=== PATIENT | male | born 1990 | race African-American/Black ===

== ENCOUNTER 2022-01-19 16:40 | Emergency (ER) | payer MEDICAID, SELFPAY ==
[2022-01-19 16:53] VITALS: BP 139/94; PULSE 93; RESP 20; TEMP 36.7; O2SAT 95; BMI 30.8
[2022-01-19 17:08] LABS: MANUAL DIFF FLAG NO
[2022-01-19 17:11] LABS: Basophils Percent Auto 0.5 % (0-2); Eosinophils Absolute Auto 0.2 X10*3/uL (0.0-0.4); Eosinophils Percent Auto 2.5 % (0-4); Hematocrit 39.2 % (42.0-52.0); Hemoglobin 12.9 g/dl (14.0-18.0); Imm Gran Abs Auto 0.02 X10*3/uL (0.00-0.03); Imm Gran Pct Auto 0.3 % (0.0-0.4); Lymphocytes Absolute Auto 2.5 X10*3/uL (1.2-4.9); Lymphocytes Percent Auto 33.6 % (20-40); Mean Corpuscular HGB Conc 32.9 g/dl (31.0-36.0); Mean Corpuscular Hemoglobin 30.1 pg (27.0-33.0); Mean Corpuscular Volume 91.6 fL (80.0-98.0); Mean Platelet Volume 10.4 fL (9.4-12.4); Monocytes Absolute Auto 0.6 X10*3/uL (0.1-1.2); Monocytes Percent Auto 7.5 % (2-11); Neutrophils Absolute Auto 4.1 x10*3/uL (2.0-8.3); Neutrophils Percent Auto 55.6 % (45-73); Platelet Count 303 X10*3/uL (160-400); Red Blood Count 4.28 X10*6/uL (4.60-5.80); Red Cell Distribution Width 12.9 % (11.0-16.0); White Blood Count 7.3 X10*3/uL (4.8-10.8)
[2022-01-19 17:23] LABS: Anion Gap 16 (12-20); Blood Urea Nitrogen 10 mg/dL (9-16); Calcium 9.5 mg/dL (8.4-10.2); Carbon Dioxide 26 mmol/L (22-29); Chloride 103 mmol/L (96-108); Estimated Glomerular Filt Rate > 60; Glucose Random 115 mg/dL (60-115); Potassium 4.3 mmol/L (3.3-5.1); Sodium 141 mmol/L (135-145)
--- NOTE | 2022-01-19 22:13 | ED_ITS ---
HPI - General Adult General Chief complaint: General Medical Stated complaint: hemorrhoid's Time Seen by Provider: 01/19/22 22:01 Source: patient Mode of arrival: ambulatory Limitations: no limitations History of Present Illness HPI narrative: 31-year-old male presents with pain and pressure at the anus, and a feeling that there is ?something there?. He did note some bright red blood on his stools and toilet paper. Does not report constipation, does not have a family history of colon cancer. He thinks that these could be hemorrhoids, but has never had them in the past. He states the feeling is uncomfortable, itchy, feels pressure, and that is having a difficult time sitting. Onset (ago): day(s) (2) Location: buttocks (Anus) Radiation: non-radiation Severity: moderate Severity scale (1-10): 7 Quality: burning, aching and constant Pain Consistency: constant Relieving factors: none Exacerbating factors: movement and other (Bowel movement) Associated symptoms: denies other symptoms Treatments prior to arrival: none Related Data Allergies Allergy/AdvReac Type Severity Reaction Status Date / Time No Known Allergies Allergy Verified 01/19/22 22:11 Review of Systems Review of Systems: Constitutional: No Fever, No Chills ENT/Mouth: No Ear Pain, No Hoarseness, No sore throat Eyes: No Eye Pain, No Swelling, No Redness, No Foreign Body Cardiovascular: No Chest Pain, No SOB Respiratory: No Cough, No Dyspnea Gastrointestinal: Positive rectal pain, positive bright red blood per rectum, No Nausea, No Vomiting, No Diarrhea, No abdominal Pain Genitourinary: No Dysuria, No Hematuria Musculoskeletal: No joint pain, No Myalgias, No Joint Swelling Skin: No Skin lacerations, No rash Neuro: No Weakness, No Numbness, No Paresthesias, No Loss of Consciousness, No Dizziness, No Headache Psych: No Anxiety/Panic, No Depression Heme/Lymph: no easy bruising, no Lymphadenopathy Endocrine: No Polyuria, No Polydipsia Yes all other systems are reviewed and are negative PMFSH Past Medical History Attestation statement: The following information was validated with the patient. Source: old records reviewed Social History Social History Smoked in Last 30 Days: No Use of substances other than those prescribed or required for medical reasons: No Advance Directives: No Advance Directives Information Provided: No Physical Exam ED Vital Signs: Vital Signs - 24 hr 01/19/22 16:53 Temperature 98.1 F Pulse Rate 93 Respiratory Rate 20 Blood Pressure 139/94 H Pulse Oximetry 95 Oxygen Delivery Method Room Air BMI result Body Mass Index 30.8 Appearance: Alert. Oriented X3. No acute distress. Eyes: Pupils equal, round and reactive to light. ENT: Pharynx normal. Neck: Normal inspection. Neck supple. CVS: Normal heart rate and rhythm. Pulses normal. Respiratory: No respiratory distress. Breath sounds normal. Abdomen: Soft and nontender. Genitourinary: External hemorrhoids, internal hemorrhoids palpable. No anal fissure. Normal rectal tone. Skin: Skin warm and dry. Normal skin color. Normal skin turgor. Extremities: No lower extremity edema. Gait well-balanced well coordinated. Neuro: No motor deficit. No sensory deficit. Cranial nerves 2-12 intact. Course Course Course Narrative: 31-year-old male presents for evaluation of hemorrhoids. Had some bright red blood per rectum and several days of rectal pressure and pain. Patient has not had history of hemorrhoids in the past, and denies family history of colon cancer. patient does not report recent constipation. Will order dibucaine and hydrocortisone ointment. Patient is hemodynamically stable. Lab values are within normal limits. Will have patient follow-up with Gastroenterology for evaluation and also to rule out possibility of colon and rectal cancer. I did discuss this in detail with the patient, he does understand the importance of Gastroenterology evaluation. Patient verbalized understanding of and agrees to plan of care discharge home. Verbalized understanding of signs and symptoms indicating need for emergent intervention. Medical Decision Making Differential Diagnosis Differential Diagnosis: Hemorrhoids, anal fissure, rectal cancer, colon cancer, constipation Medical Records Medical records reviewed: Yes I reviewed the patient's medical records. Lab Data Lab results reviewed: Yes I reviewed the patient's lab results. Result diagrams: 01/19/22 17:02 01/19/22 17:02 Labs: Lab Results 01/19/22 01/19/22 Range/Units 17:02 17:02 WBC 7.3 (4.8-10.8) X10*3/uL RBC 4.28 L (4.60-5.80) X10*6/uL Hgb 12.9 L (14.0-18.0) g/dl Hct 39.2 L (42.0-52.0) % MCV 91.6 (80.0-98.0) fL MCH 30.1 (27.0-33.0) pg MCHC 32.9 (31.0-36.0) g/dl RDW 12.9 (11.0-16.0) % Plt Count 303 (160-400) X10*3/uL MPV 10.4 (9.4-12.4) fL Immature Gran % (Auto) 0.3 (0.0-0.4) % Neut % (Auto) 55.6 (45-73) % Lymph % (Auto) 33.6 (20-40) % [place] % (Auto) 7.5 (2-11) % Eos % (Auto) 2.5 (0-4) % Baso % (Auto) 0.5 (0-2) % Lymph # (Auto) 2.5 (1.2-4.9) X10*3/uL [place] # (Auto) 0.6 (0.1-1.2) X10*3/uL Eos # (Auto) 0.2 (0.0-0.4) X10*3/uL Baso # (Auto) 0.0 (0.0-0.2) X10*3/uL Abs Immat Gran (auto) 0.02 (0.00-0.03) X10*3/uL Absolute Neuts (auto) 4.1 (2.0-8.3) x10*3/uL Absolute Nucleated RBC 0.000 (0.0-0.012) X10*3/uL Nucleated RBC % (auto) 0.0 (0.0-0.2) /100WBC Sodium 141 (135-145) mmol/L Potassium 4.3 (3.3-5.1) mmol/L Chloride 103 (96-108) mmol/L Carbon Dioxide 26 (22-29) mmol/L Anion Gap 16 (12-20) BUN 10 (9-16) mg/dL Creatinine 0.93 (0.5-1.4) mg/dL Estim Creat Clear Calc 136.0 Estimated GFR > 60 Random Glucose 115 (60-115) mg/dL Calcium 9.5 (8.4-10.2) mg/dL Discharge Plan Discharge Clinical Impression: Hemorrhoids Patient Disposition: Home, Self-Care Instructions: Hemorrhoids (ED), Sitz Bath (DC) Additional Instructions: You were evaluated for rectal and anal pain. Physical exam is positive for hemorrhoids. You must follow-up with Gastroenterology for a colonoscopy to rule out colon and rectal cancer. Use dibucaine twice daily to the anus. Prior to rectal use, clean the affected area with mild soap and warm water and rinse thoroughly. Pat or dab the medication on to your affected area. Do not put this product into your rectum. Use hydrocortisone cream twice a day. Follow the instructions for dibucaine. Take MiraLax daily to soften stools. Again, you must follow-up with Gastroenterology. I referred you to Dr. Kincaid. Please call and request an appointment for evaluation. Thank you for choosing this emergency department for evaluation. Please follow-up with primary care physician as needed. Return to the emergency department for any new, concerning, or worsening symptoms. Referrals: Aristides Kincaid MD [Physician] - 3 days (Rectal pain with bleeding, hemorrhoids, evaluation for colon CA verses rectal CA) Stand Alone Forms: Work/School Release Interventions: ED Discharge Assessment Last Done: 01/19/22 23:00 Discharge Date/Time: 01/19/22 23:01
[2022-01-19] MEDS: Hydrocortisone 2.5 % Rectal Cr 30 GM TUBE 1 APPL PR (22:56)
--- NOTE | 2022-01-19 23:00 | PC.NURSE ---
Discharge instructions reviewed with pt. Rectal cream application instructions provided to pt. Pt verbalizes understanding.
== END 2022-01-19 23:01 | disposition home or self-care (01) ==
PROVIDERS: Emergency Provider Student in an Organized Health Care Education/Training Program
DX: K64.9 Unspecified hemorrhoids (principal); Z79.899 Other long term (current) drug therapy
CPT/HCPCS: 36415; 80048; 85025; 99283; 99284

== ENCOUNTER → 2022-01-30 15:27 | Outpatient (BNVA) | payer MEDICAID, SELFPAY | PROVIDERS: Visit Provider Internal Medicine | DX: K62.5 Hemorrhage of anus and rectum (principal); K62.89 Other specified diseases of anus and rectum; K64.8 Other hemorrhoids; D64.9 Anemia, unspecified | CPT/HCPCS: 99202 ==

== ENCOUNTER 2022-09-16 18:43 | Emergency (ER) | payer MEDICAID, SELFPAY ==
[2022-09-16 18:49] VITALS: BP 150/105; PULSE 99; RESP 18; TEMP 36.6; O2SAT 100; BMI 32.5
--- NOTE | 2022-09-16 19:00 | PC.NURSE ---
Adjusted Acuity based on lack of trauma, neuro deficits or other concerning findings in triage.
--- NOTE | 2022-09-16 19:01 | ED.GENADULT ---
HPI - General Adult General Chief complaint: Ear Problems Stated complaint: Right ear bleeding Time Seen by Provider: 09/16/22 22:30 Source: patient, RN notes reviewed and old records reviewed Mode of arrival: ambulatory Limitations: no limitations History of Present Illness HPI narrative: 32-year-old male presents for evaluation for bleeding from the ear. ? Patient reports that he has felt like his right ear has been blocked for a few months. He states that he felt like he had water in the ear 2 days ago. He stuck a Q-tip in and noticed that there was blood on the Q-tip He reports decreased hearing since that The patient was seen at [facility] yesterday and was given oral antibiotics He reports that he was still had some mild bleeding earlier today Related Data Previous Rx's Medication Instructions Recorded Rell denis #1 ea 01/30/22 Allergies Allergy/AdvReac Type Severity Reaction Status Date / Time No Known Allergies Allergy Verified 01/30/22 15:56 Review of Systems ENT: Reports ear discharge and Reports otalgia [facility] Family History Family History Maternal Grandfather Colon cancer Maternal Uncle Colon cancer Social History Social History Alcohol intake: former Smoked in Last 30 Days: No Use of substances other than those prescribed or required for medical reasons: No Advance Directives: No Advance Directives Information Provided: No Physical Exam ED Vital Signs: Vital Signs - 24 hr 09/16/22 18:49 09/16/22 22:58 Temperature 97.9 F 97.6 F Pulse Rate 99 86 Respiratory Rate 18 16 Blood Pressure 150/105 H 140/84 H Pulse Oximetry 100 97 Oxygen Delivery Method Room Air Room Air BMI result Body Mass Index 32.5 HENMT Other: Right tympanic membrane ruptured. There is a piece of the tympanic membrane that is visible and intact from the 9 to 7 o'clock position. There is no active bleeding but there is dry blood within the right ear canal. No mastoid tenderness. No pre or postauricular edema. Left TM pearly white without erythema or effusion or perforation Course Course Course Narrative: RME: 32 yold male presents to the ED for Right ear bleeding since yesterday. patient denies any trauma to the head, ear, or neck. patient admits to using qtip. Patient on oral antibiotics Medical Decision Making Medical Decision Making MDM Narrative: Clinically the patient has a ruptured right tympanic membrane. He is already on oral antibiotics are prescribed 2 days ago. No additional workup is indicated. There is no active bleeding. The patient will follow up with his primary doctor to get a referral to ENT Differential Diagnosis Otitis media Otitis externa Ruptured tympanic membrane Foreign body in ear Discharge Plan Discharge Clinical Impression: Eardrum rupture, right Patient Disposition: Home, Self-Care Instructions: Ruptured Eardrum (ED) Additional Instructions: You have a ruptured right tympanic membrane. Do not take anything in your ear Try not to even get water in your ear Continue taking the antibiotics as prescribed You need to follow-up with your primary doctor You should see an ENT specialist Unfortunately, we do not have any rotary shear worker helper that we can refer you to at this hospital You may call on your all or ask your doctor for a referral Prescriptions: No Action (DME) Rell denis [facility] See Rx Instructions .Route Qty: 1 0RF Rx Instructions: As directed Stand Alone Forms: Work/School Release Interventions: ED Discharge Assessment Last Done: 09/16/22 23:01 Discharge Date/Time: 09/16/22 23:01
[2022-09-16 22:58] VITALS: BP 140/84; PULSE 86; RESP 16; TEMP 36.4; O2SAT 97
== END 2022-09-16 23:01 | disposition home or self-care (01) ==
PROVIDERS: Emergency Provider Emergency Medicine
DX: H72.91 Unspecified perforation of tympanic membrane, right ear (principal)
CPT/HCPCS: 99282; 99284